=== PATIENT | female | born 1935 | race Caucasian/White ===

== ENCOUNTER 2016-11-15 09:26 | Day surgery (SDC) | payer MEDICARE, OTHER ==
[2016-11-15] VITALS (7 sets, daily range): BP systolic 107–136; BP diastolic 55–63
[~2016-11-15] VITALS: Ht 149.9 cm; Wt 88.9 kg
[~2016-11-15 09:26] MED LIST: ATEN50TA2 PO; BUPIVACAINE HCL 0.25% 30 ML VIAL As Ordered ONE; CLOP75TA2 PO; DRIS50002 PO; EZETIMIBE 10 MG TAB (ZETIA) PO SCH; FUROSEMIDE 40 MG TAB PO SCH; HYDR-4266 PO; LASI40TA PO; LOSA100T36 PO; LOSARTAN 50 MG TAB PO SCH; MECL-86 PO; ONETAB33 PO; PANT40TA2 PO; PANTOPRAZOLE 40MG TAB (PROTONIX) PO SCH; STOO100C PO; TYLE500T78 PO
[2016-11-15] MEDS ORDERED: LR 1,000 ML IV ONE (09:45)
[2016-11-15] MEDS ORDERED: LR 1,000 ML IV SCH ×2 (09:45→14:30)
[2016-11-15] MEDS ORDERED: ROCURONIUM BROMIDE 50 MG/5 ML VIAL As Ordered ONE (10:42)
[2016-11-15] MEDS ORDERED: PROPOFOL 200 MG/20 ML VIAL As Ordered ONE (10:42)
[2016-11-15] MEDS ORDERED: LIDOCAINE 2% INJ 100 MG/5 ML SDV (FOR ANES.) As Ordered ONE (10:42)
[2016-11-15] MEDS ORDERED: fentaNYL 250 MCG/5 ML INJECTION (J3010) As Ordered ONE (10:42)
[2016-11-15] MEDS ORDERED: MIDAZOLAM INJ 2 MG/2 ML VIAL (J2250) As Ordered ONE (10:43)
[2016-11-15] MEDS ORDERED: ePHEDrine SULFATE 25 MG/5 ML(5MG/ML) SYRINGE As Ordered ONE (12:37)
[2016-11-15] MEDS ORDERED: NEOSTIGMINE 1MG/ML 5 ML SYRINGE (J2710) As Ordered ONE (13:10)
[2016-11-15] MEDS ORDERED: GLYCOPYRROLATE INJ 0.2 MG/ML 2 ML VIAL As Ordered ONE (13:10)
[2016-11-15] MEDS ORDERED: ESMOLOL INJ 100MG/10ML VIAL As Ordered ONE (13:23)
[2016-11-15] MEDS ORDERED: HYDROmorphone HCL 2 MG/ML 1ML VIAL (J1170) As Ordered ONE (13:47)
[2016-11-15] MEDS ORDERED: ONDANSETRON 4MG/2ML VIAL (J2405) IV PRN ×2 (14:30→15:00)
[2016-11-15] MEDS ORDERED: PERCOCET 5MG/325MG TAB PO PRN (14:30)
[2016-11-15] MEDS ORDERED: fentaNYL 100 MCG/2 ML INJECTION (J3010) IV PRN (14:30)
[2016-11-15] MEDS ORDERED: NORCO, ANEXSIA 5/325MG TABLET (HYDROcodone/ACETAMINOPHEN) PO PRN (14:45)
[2016-11-15] MEDS: HYDROmorphone HCL 1 MG/ML SYRINGE (J1170) IV PRN ×2 (14:45→14:55)
[2016-11-15] MEDS ORDERED: ACETAMINOPHEN TAB 650MG DOSE (2X325MG) PO PRN (14:45)
[2016-11-15] MEDS ORDERED: **hydrALAZINE HCL** 25 MG TAB PO SCH (21:00)
[2016-11-15] MEDS ORDERED: ATENOLOL 25 MG TAB PO SCH (21:00)
[2016-11-15] MEDS: NORCO, ANEXSIA 5/325MG TABLET (HYDROcodone/ACETAMINOPHEN) PO PRN (21:14)
[2016-11-16 00:30] VITALS: BP 130/71
[2016-11-16] MEDS: NORCO, ANEXSIA 5/325MG TABLET (HYDROcodone/ACETAMINOPHEN) PO PRN (05:30)
[2016-11-16 06:00] VITALS: BP 137/61
--- NOTE | 2016-11-16 20:27 | RO ---
DATE OF PROCEDURE: 11/15/2016 PREOPERATIVE DIAGNOSIS: Ventral incisional hernia. POSTOPERATIVE DIAGNOSIS: Ventral incisional hernia. OPERATIVE PROCEDURE: Laparoscopic ventral hernia repair with 9 cm Parietex patch. SURGEON: Ramón Bill MD SENIOR LEAD PROJECT MANAGER: Dr. Wagner ANESTHESIA: General. INDICATIONS FOR PROCEDURE: The patient is an 81-year-old woman who has had some discomfort in the epigastrium just above the umbilicus. She had undergone a laparoscopic cholecystectomy some years ago. She had a CT scan of the abdomen and pelvis obtained. This revealed a large hiatal hernia containing much of the stomach and a portion of the colon. She was also noted to have a fat containing supraumbilical hernia. Examination confirmed a small bulge just above the umbilicus at the site of the scar from her previous cholecystectomy trocar. She is now for a laparoscopic ventral incisional herniorrhaphy. OPERATIVE PROCEDURE: The patient was placed under general endotracheal anesthesia. The patient's abdomen was prepped and draped in a sterile fashion. I elected to proceed with laparoscopy at the start of the procedure to better identify the site of her fascial defect. Therefore, 0.25% Marcaine was infiltrated in the right lateral abdomen at the level of the umbilicus. A Veress needle was inserted and the abdomen was insufflated with carbon dioxide gas. A 5 mm port was placed over a 5 mm scope and this was advanced through the abdominal wall without difficulty. Initial examination with the laparoscope revealed that there was some gas insufflation into the mesentery of the small bowel in the right upper quadrant. There did not appear to be any perforation of bowel wall. There was no bleeding identified. There did not appear to be any vascular compromise of the visualized bowel segments. A second 5 mm trocar was placed higher in the right upper quadrant. A Harmonic scalpel was used to probe the anterior abdominal wall. She was found to have some preperitoneal fat herniating through a fascial defect just above the umbilicus at the site of her transverse scar. There was also some prominent fibrofatty tissue on the inner aspect of the abdominal wall, particularly just above the level of the fascial defect. The Harmonic scalpel was used to dissect this fatty tissue away from the fascia of the abdominal wall. The dissection was improved after a third trocar was placed in the right lower quadrant so that a grasper could be used to place traction on the hernia contents. The peritoneum and preperitoneal fat that was herniated through the fascial defect was retracted into the abdomen with some attached fibrofatty tissue and this was all dissected away using the harmonic scalpel. A portion of this was dissected completely off the abdominal wall and placed aside for later removal. Subsequently, two small additional fragments of fibrofatty tissue were dissected off the anterior abdominal wall. The patient was found to have a fascial defect perhaps 2 to 2-1/2 cm in diameter just above the level of the umbilicus. At this point, all of the fibrofatty tissue that was free in the abdomen was grasped with a single grasper and the abdomen was then deflated. Some local anesthesia was then infiltrated above the umbilicus and a longitudinal incision approximately 4-5 cm was made. This was deepened through the subcutaneous tissues. The hernia sac was identified and dissected free from the surrounding fibrofatty tissues and excised. The fatty tissue fragments were removed from the abdomen through the hernia. The fascial defect was confirmed to be approximately 2 to 2.5 cm in diameter. The fibrofatty tissue was elevated off of the fascial defect circumferentially. In doing so, a second small fascial defect, perhaps 6 to 7 mm in diameter just above the larger defect was identified. This was slightly to the right of the midline. I elected to place a prosthetic patch over the defects internally. Therefore, a 9 cm Parietex patch was selected. This was reference number [id number] and lot number [id number]. A #1-0 Ethibond was placed through the inferior edge of the larger fascial defect and then took a bite of the center of the Parietex patch and then of the superior edge of the fascial defect. The mesh was rolled and placed into the abdomen and the Ethibond suture was then tied down, fixing the mesh to the center of the defect. Two additional Ethibond sutures were used to close the larger fascial defect. A single transversely placed suture was placed in the smaller fascial defect. The umbilical area wound was filled with a gauze and the abdomen was then reinflated to a pressure of 8 mmHg. The mesh was unrolled and was laid flat over the anterior abdominal wall. A secure strap tacking device was used to place tacks around the periphery of the mesh nicely placing it flat over the anterior abdominal wall. Additional tacks were placed in the center of the mesh. This appeared to nicely apply the mesh to the anterior abdominal wall. Care was taken to place this with the nonadherent side facing the bowel. The subcutaneous tissues at the supraumbilical site were approximated with Vicryl. The umbilicus was tacked down to the underlying fascia with a single Vicryl suture. The skin edges were approximated with subcuticular #4-0 Vicryl and Steri-Strips. The patient tolerated the procedure well without apparent complication. She was awakened in the operating room, extubated and moved to the recovery room in stable condition. ELISEO
== END 2016-11-16 10:30 | disposition home or self-care (01) ==
LOC: M SDC 09:26 → M MS5PR 15:45 → M SDC 11-16 10:30
PROVIDERS: ATTEND Surgery
DX: K43.2 Incisional hernia without obstruction or gangrene (principal); K44.9 Diaphragmatic hernia without obstruction or gangrene; I10 Essential (primary) hypertension; K21.9 Gastro-esophageal reflux disease without esophagitis; E78.5 Hyperlipidemia, unspecified; F32.9 Major depressive disorder, single episode, unspecified; F41.9 Anxiety disorder, unspecified; M81.0 Age-related osteoporosis without current pathological fracture; D64.9 Anemia, unspecified; M54.9 Dorsalgia, unspecified; R32 Unspecified urinary incontinence; Z88.1 Allergy status to other antibiotic agents; Z88.8 Allergy status to other drugs, medicaments and biological substances; Z91.048 Other nonmedicinal substance allergy status; Z86.73 Personal history of transient ischemic attack (TIA), and cerebral infarction without residual deficits; Z79.899 Other long term (current) drug therapy; Z79.02 Long term (current) use of antithrombotics/antiplatelets
CPT/HCPCS: 49652; 88302; C1781; J1170; J2250; J2405; J2710; J3010

== ENCOUNTER 2017-10-10 10:04 | Day surgery (SDC) | payer OTHER ==
[2017-10-10] MEDS: LR 1,000 ML IV (10:15)
[2017-10-10] MEDS ORDERED: PROPOFOL 200 MG/20 ML VIAL As Ordered ×2 (10:44)
[2017-10-10] MEDS ORDERED: LIDOCAINE 2% INJ 100 MG/5 ML SDV (FOR ANES.) As Ordered (12:38)
== END 2017-10-10 14:30 | disposition home or self-care (01) ==
LOC: M OPP 10:04
DX: K57.30 Diverticulosis of large intestine without perforation or abscess without bleeding (principal); K59.00 Constipation, unspecified; R63.4 Abnormal weight loss; K22.8 Other specified diseases of esophagus; K44.9 Diaphragmatic hernia without obstruction or gangrene; K21.9 Gastro-esophageal reflux disease without esophagitis; I10 Essential (primary) hypertension; E78.5 Hyperlipidemia, unspecified; K74.60 Unspecified cirrhosis of liver; K76.89 Other specified diseases of liver; M54.2 Cervicalgia; M81.0 Age-related osteoporosis without current pathological fracture; F41.9 Anxiety disorder, unspecified; F32.9 Major depressive disorder, single episode, unspecified; Z79.82 Long term (current) use of aspirin; Z79.899 Other long term (current) drug therapy; Z91.048 Other nonmedicinal substance allergy status; Z88.8 Allergy status to other drugs, medicaments and biological substances; Z86.73 Personal history of transient ischemic attack (TIA), and cerebral infarction without residual deficits; Z78.0 Asymptomatic menopausal state; Z98.49 Cataract extraction status, unspecified eye; Z87.19 Personal history of other diseases of the digestive system; Z86.39 Personal history of other endocrine, nutritional and metabolic disease
CPT/HCPCS: 45378

== ENCOUNTER → 2019-06-20 | Outpatient (REF) | payer OTHER ==
[~2019-06-20] MED LIST changes: +ACID1TAB5 PO; +ASPI81TA26 PO; -BUPIVACAINE HCL 0.25% 30 ML VIAL As Ordered ONE; -DRIS50002 PO; +DRIS50003 PO; -EZETIMIBE 10 MG TAB (ZETIA) PO SCH; -FUROSEMIDE 40 MG TAB PO SCH; +HYDR-3910 PO; -HYDR-4266 PO; -LASI40TA PO; +LASI40TA9 PO; -LOSA100T36 PO; +LOSA100T50 PO; -LOSARTAN 50 MG TAB PO SCH; +MIRA3350 PO; +MM S100C PO; +ONDA4TAB6; -PANT40TA2 PO; +PANT40TA3 PO; -PANTOPRAZOLE 40MG TAB (PROTONIX) PO SCH; -STOO100C PO
== END ==
LOC: M LAB REF 18:23
PROVIDERS: ATTEND Dermatology
DX: D48.9 Neoplasm of uncertain behavior, unspecified (principal)

== ENCOUNTER → 2022-08-26 | Outpatient (CLI) | payer MEDICARE ==
[~2022-08-26] MED LIST changes: +E-Z-GAS II EFFERVESCENT PACKET (SODIUM BICARB./CITRIC ACID/SIMETHICONE) As Ordered ONE; +E-Z-HD 98% w/w 340GM SUSP BTL As Ordered ONE; +E-Z-PAQUE 96% w/w SUSP 176GM BTL As Ordered ONE; +LOSA100T45 PO; -LOSA100T50 PO; +PANT40TA29 PO; -PANT40TA3 PO
== END ==
LOC: M RAD 08:42
PROVIDERS: ATTEND Surgery
DX: R10.13 Epigastric pain (principal)